=== PATIENT | male | born 1980 | race Caucasian/White ===

== ENCOUNTER 2019-04-19 07:00 | Emergency (ER) | payer OTHER ==
[~2019-04-19] VITALS: Ht 185.4 cm; Wt 87.0 kg
--- NOTE | 2019-04-19 07:17 | NUR ---
PATIENT ARRIVES TO ER WITH LEFT SIDED FLANK PAIN THAT BEGAN YESTERDAY AND GOT INCREASINGLY WORSE. HE IS HAVING URINARY RETENTION AND UNABLE TO VOID MUCH IN SPITE OF DRINKING A LOT OF WATER. IN BED. RAILS UP.
--- NOTE | 2019-04-19 07:21 | NUR ---
PATIENT HAD SMALL AMOUNT OF URINE, TOOK TO LAB LABELED IN PRESENCE OF PATIENT.
[2019-04-19] MEDS ORDERED: ONDANSETRON ODT 4 MG PO ONE (07:30)
[2019-04-19] MEDS ORDERED: ONDANSETRON ODT 4 MG ONE (07:35)
--- NOTE | 2019-04-19 07:42 | NUR ---
AWAITING CT SCAN
[2019-04-19 07:45] LABS: CULTURE INDICATED? NO; MICROSCOPIC INDICATED
[2019-04-19 08:00] LABS: BASOPHILS # (AUTO) 0.06 x10^3/uL (0-0.1); BASOPHILS % (AUTO) 1 % (0-1); EOSINOPHILS # (AUTO) 0.36 x10^3/uL (0-0.4); EOSINOPHILS % (AUTO) 7 % (1-7); LYMPHOCYTES # (AUTO) 1.23 x10^3/uL (1-3.4); LYMPHOCYTES % (AUTO) 25 % (22-44); MD NO; MEAN CORPUSCULAR HEMOGLOBIN 30.4 pg (27.5-34.5); MEAN CORPUSCULAR HGB CONC 33.2 g/dL (33.2-36.2); MEAN CORPUSCULAR VOLUME 91.6 fL (81-97); MEAN PLATELET VOLUME 7.8 fL (7.4-10.4); MONOCYTES # (AUTO) 0.36 x10^3/uL (0.2-0.8); MONOCYTES % (AUTO) 7 % (2-9); NEUTROPHILS % (AUTO) 60 % (42-75); PLATELET COUNT 170 x10^3/uL (130-400); RED BLOOD COUNT 4.83 x10^6/uL (4.38-5.82); RED CELL DISTRIBUTION WIDTH 13.8 % (9.4-14.8)
[2019-04-19 08:10] LABS: ANION GAP 6 mmol/L (5-15); CALCIUM 8.7 mg/dL (8.5-10.1); CHLORIDE 107 mmol/L (98-107); CREATININE 1.47 mg/dL (0.7-1.3)
--- NOTE | 2019-04-19 08:22 | NUR ---
PATIENT HELPED TO GO TO BATHROOM. AWAITING CT RESULTS
[2019-04-19] MEDS ORDERED: KETOROLAC 30 MG/1 ML ONE (08:27)
[2019-04-19] MEDS ORDERED: SODIUM CHLORIDE 0.9% 1,000ML IVBOLUS ONE (08:30)
[2019-04-19] MEDS ORDERED: KETOROLAC 30 MG/1 ML IVPush ONE (08:30)
[2019-04-19] MEDS ORDERED: MORPHINE SULFATE 4 MG/ML, 1ML ONE ×2 (08:56→09:36)
[2019-04-19] MEDS: MORPHINE SULFATE 4 MG/ML, 1ML IVPush PRN ×2 (09:00→09:38)
[2019-04-19 09:11] VITALS: BP 122/78
--- NOTE | 2019-04-19 09:17 | NUR ---
DISCHARGE TEACHING REVIEWED. SHOWS UNDERSTANDING. GOT HIM A HAT TO COLLECT STONE. INSTRUCTED NO DRIVING - HE IS TAKING UBER TO [facility].
--- NOTE | 2019-04-19 09:31 | NUR ---
DISCHARGE INSTRUCTIONS REVIEWED, SHOWS UNDERSTANDING.
--- NOTE | 2019-04-19 09:34 | NUR ---
PATIENT STILL HAVING PAIN ISSUES. GIVING SECOND DOSE OF MORPHINE THEN WILL WATCH PATIENT FOR 15 MIN TO SEE IF PAIN RESOLVES/TOLERANCE. GOT HIM FOOD/CRACKERS/WATER
--- NOTE | 2019-04-19 09:57 | NUR ---
PATIENT PAIN IMPROVED FROM MORPHINE
== END 2019-04-19 09:59 | disposition home or self-care (01) ==
LOC: ED 08:48
DX: N20.0 Calculus of kidney (principal); R11.2 Nausea with vomiting, unspecified
CPT/HCPCS: 36415; 74176; 80048; 81001; 82040; 85025; 96361; 96374; 96375; 96376; 99284; J1885; J2270; J7030; Q0162